=== PATIENT | male | born 1970 | race Two or more races ===

== ENCOUNTER 2016-08-07 14:47 | Inpatient (IN) | payer OTHER ==
[2016-08-07 16:08] VITALS: BMI 21.9
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
[2016-08-07] MEDS ORDERED: P-EPHED 60MG/TRIPROLIDI 2.5MG TABLET PO PRN (19:05)
[2016-08-07] MEDS ORDERED: MAG HYDROX/AL HYDROX/SIMETH 30 ML UNIT-DOSE CUP PO PRN (19:05)
[2016-08-07] MEDS ORDERED: MAGNESIUM CITRATE 300 ML BOTTLE PO PRN (19:05)
[2016-08-07] MEDS ORDERED: MAGNESIUM HYDROX 2400MG/30ML ORAL SUSPENSION 30 ML CUP PO PRN (19:05)
[2016-08-07] MEDS ORDERED: NICOTINE POLACRILEX 2 MG GUM BC PRN (19:05)
[2016-08-07] MEDS ORDERED: IBUPROFEN 400 MG TABLET (FP) PO PRN (19:05)
[2016-08-07] MEDS ORDERED: MENTHOL/PHENOL 1 EACH UD MM PRN (19:05)
[2016-08-07] MEDS ORDERED: guaiFENesin/D-METHORPHAN HB 10 ML UNIT-DOSE CUPS PO PRN (19:05)
[2016-08-07] MEDS ORDERED: ACETAMINOPHEN 325 MG TABLET (FP) PO PRN (19:05)
[2016-08-07] MEDS ORDERED: LOPERAMIDE HCL 2 MG CAPSULE PO PRN (19:05)
[2016-08-07] MEDS ORDERED: METHADONE HCL 10 MG TABLET (FOR DETOX USE ONLY) PO ONE ×2 (20:15→23:00)
[2016-08-07] MEDS: cloNIDine HCL 0.1 MG TABLET PO PRN (21:29)
[2016-08-07] MEDS: diazePAM 5 MG TABLET PO PRN (21:29)
[2016-08-07] MEDS: THIAMINE HCL 100 MG TABLET (FP) PO SCH (21:29)
[2016-08-07 22:58] LABS: URINE APPEARANCE CLEAR; URINE BILIRUBIN NEGATIVE (NEGATIVE); URINE BLOOD NEGATIVE (NEGATIVE); URINE COLOR YELLOW; URINE GLUCOSE (UA) NEGATIVE (NEGATIVE); URINE KETONE NEGATIVE (NEGATIVE); URINE LEUK ESTERASE NEGATIVE (NEGATIVE); URINE NITRITE NEGATIVE (NEGATIVE); URINE UROBILINOGEN 2.0 E.U/dl E.U./dl (0.2-1.0)
[2016-08-07 23:02] LABS: URINE PROTEIN 2+ (NEGATIVE)
[2016-08-08] MEDS: cloNIDine HCL 0.1 MG TABLET PO PRN (06:36)
[2016-08-08] MEDS: diazePAM 5 MG TABLET PO PRN ×3 (07:00→22:12)
[2016-08-08] MEDS ORDERED: METHADONE HCL 10 MG TABLET (FOR DETOX USE ONLY) PO ONE (10:00)
[2016-08-08] MEDS: PRENATAL VITAMINS W/ FOLIC ACID TABLET (FP) PO SCH (10:17)
[2016-08-08] MEDS: NICOTINE 14 MG/24 HOURS TOPICAL PATCH TD SCH (10:17)
[2016-08-08 10:31] LABS: MCH 29.1 pg (25.7-33.7); MCHC 33.2 g/dl (32.0-35.9); MEAN CELL VOLUME 87.8 fl (80-96); MEAN PLT VOLUME 8.6 fl (7.5-11.1); PLATELET COUNT 238 K/MM3 (134-434); RDW 13.6 % (11.9-15.9); WHITE BLOOD COUNT 6.3 K/mm3 (4.0-10.0)
[2016-08-08 10:35] LABS: ALBUMIN 3.3 g/dl (3.4-5.0); ALK PHOS 79 U/L (45-117); ANION GAP 10 (8-16); BILIRUBIN,TOTAL 0.3 mg/dL (0.2-1.0); CALCIUM 8.8 mg/dL (8.5-10.1); CO2 25 mmol/L (21-32); CREATININE 0.8 mg/dL (0.7-1.3); GLUCOSE,RANDOM 90 mg/dL (74-106); SGOT/AST 14 U/L (15-37); SGPT/ALT 28 U/L (12-78); TOT PROT 6.9 g/dl (6.4-8.2)
--- NOTE | 2016-08-08 13:35 | EKG ---
Test Reason : Blood Pressure : / mmHG Vent. Rate : 064 BPM Atrial Rate : 064 BPM P-R Int : 180 ms QRS Dur : 096 ms QT Int : 406 ms P-R-T Axes : 058 047 038 degrees QTc Int : 418 ms NORMAL SINUS RHYTHM VOLTAGE CRITERIA FOR LEFT VENTRICULAR HYPERTROPHY CANNOT RULE OUT SEPTAL INFARCT , AGE UNDETERMINED ABNORMAL ECG NO PREVIOUS ECGS AVAILABLE Confirmed by BERONICA ROACH MD ([id number]) on 08/08/2016 1:34:55 PM Referred By: Confirmed By:BERONICA ROACH MD
--- NOTE | 2016-08-08 17:45 | PN ---
[facility] COWS - Scale Resting Pulse: 1= [place] 81-100 Sweatin=Flushed/Facial Moisture Restless Observation: 1= Difficult to Sit Still Pupil Size: 0= Normal to Room Light Bone or Joint Aches: 2= Severe Diffuse Aches Runny Nose/ Eye Tearin= Runny Nose/Eyes GI Upset > 30mins: 2= Nausea/Diarrhea Tremor Observation of Outstretched Hands: 2= Slight Tremor Visible Yawning Observation: 1= 1-2x During Session Anxiety or Irritability: 2=Irritable/Anxious Goose Flesh Skin: 0=Smooth Skin COWS Score: 15 BHS Progress Note (SOAP) Subjective: ANXIETY,SWEATING,INTERRUPTED SLEEP,BACK/BONE PAIN,RESTLESS Objective: 08/08/16 17:44 Vital Signs - 8 hr 08/08/16 13:18 Temperature 97.2 F L Pulse Rate 81 Respiratory 18 Rate Blood Pressure 126/72 Laboratory Tests 08/07/16 08/08/16 08/08/16 22:05 07:00 07:00 WBC 6.3 RBC 4.88 Hgb 14.2 D Hct 42.8 MCV 87.8 MCHC 33.2 RDW 13.6 Plt Count 238 MPV 8.6 Sodium 137 Potassium 4.0 Chloride 102 Carbon Dioxide 25 Anion Gap 10 BUN 13 D Creatinine 0.8 Creat Clearance w eGFR > 60 Random Glucose 90 Calcium 8.8 Total Bilirubin 0.3 D AST 14 L ALT 28 D Alkaline Phosphatase 79 D Total Protein 6.9 Albumin 3.3 L Urine Color Yellow Urine Appearance Clear Urine pH 6.0 Ur Specific [place] 1.025 Urine Protein 2+ H Urine Glucose (UA) Negative Urine Ketones Negative Urine Blood Negative Urine Nitrite Negative Urine Bilirubin Negative Urine Urobilinogen 2.0 e.u/dl Ur Leukocyte Esterase Negative RPR Titer 08/08/16 07:00 WBC RBC Hgb Hct MCV MCHC RDW Plt Count MPV Sodium Potassium Chloride Carbon Dioxide Anion Gap BUN Creatinine Creat Clearance w eGFR Random Glucose Calcium Total Bilirubin AST ALT Alkaline Phosphatase Total Protein Albumin Urine Color Urine Appearance Urine pH Ur Specific [place] Urine Protein Urine Glucose (UA) Urine Ketones Urine Blood Urine Nitrite Urine Bilirubin Urine Urobilinogen Ur Leukocyte Esterase RPR Titer Nonreactive LABS NOTED Assessment: 08/08/16 17:44 WITHDRAWAL SX. Plan: CONTINUE DETOX
[2016-08-08] MEDS: THIAMINE HCL 100 MG TABLET (FP) PO SCH (22:11)
[2016-08-08] MEDS: diphenhydrAMINE HCL 50 MG CAPSULE PO PRN (22:12)
[2016-08-09] MEDS: cloNIDine HCL 0.1 MG TABLET PO PRN ×2 (05:50→22:50)
[2016-08-09] MEDS: diazePAM 5 MG TABLET PO PRN ×2 (05:50→22:50)
[2016-08-09] MEDS ORDERED: METHADONE HCL 5 MG TABLET (FOR DETOX USE ONLY) PO ONE (10:00)
[2016-08-09] MEDS: PRENATAL VITAMINS W/ FOLIC ACID TABLET (FP) PO SCH (10:22)
[2016-08-09] MEDS: NICOTINE 14 MG/24 HOURS TOPICAL PATCH TD SCH (10:22)
--- NOTE | 2016-08-09 12:49 | PN ---
[facility] COWS - Scale Resting Pulse: 2= [place] 101-120 Sweatin=Flushed/Facial Moisture Restless Observation: 1= Difficult to Sit Still Pupil Size: 0= Normal to Room Light Bone or Joint Aches: 2= Severe Diffuse Aches Runny Nose/ Eye Tearin= Runny Nose/Eyes GI Upset > 30mins: 2= Nausea/Diarrhea Tremor Observation of Outstretched Hands: 2= Slight Tremor Visible Yawning Observation: 1= 1-2x During Session Anxiety or Irritability: 2=Irritable/Anxious Goose Flesh Skin: 0=Smooth Skin COWS Score: 16 BHS Progress Note (SOAP) Subjective: ANXIETY,SWEATING,INTERRUPTED SLEEP,RESTLESS,NAUSEA,BODY ACHES. Objective: 08/09/16 12:48 Vital Signs - 8 hr 08/09/16 08/09/16 08/09/16 06:59 07:20 10:08 Temperature 96.6 F L 97.0 F L Pulse Rate 103 H 112 H 108 H Respiratory 20 16 Rate Blood Pressure 144/101 106/78 139/90 Laboratory Tests 08/07/16 08/08/16 08/08/16 22:05 07:00 07:00 WBC 6.3 RBC 4.88 Hgb 14.2 D Hct 42.8 MCV 87.8 MCHC 33.2 RDW 13.6 Plt Count 238 MPV 8.6 Sodium 137 Potassium 4.0 Chloride 102 Carbon Dioxide 25 Anion Gap 10 BUN 13 D Creatinine 0.8 Creat Clearance w eGFR > 60 Random Glucose 90 Calcium 8.8 Total Bilirubin 0.3 D AST 14 L ALT 28 D Alkaline Phosphatase 79 D Total Protein 6.9 Albumin 3.3 L Urine Color Yellow Urine Appearance Clear Urine pH 6.0 Ur Specific [place] 1.025 Urine Protein 2+ H Urine Glucose (UA) Negative Urine Ketones Negative Urine Blood Negative Urine Nitrite Negative Urine Bilirubin Negative Urine Urobilinogen 2.0 e.u/dl Ur Leukocyte Esterase Negative RPR Titer 08/08/16 07:00 WBC RBC Hgb Hct MCV MCHC RDW Plt Count MPV Sodium Potassium Chloride Carbon Dioxide Anion Gap BUN Creatinine Creat Clearance w eGFR Random Glucose Calcium Total Bilirubin AST ALT Alkaline Phosphatase Total Protein Albumin Urine Color Urine Appearance Urine pH Ur Specific [place] Urine Protein Urine Glucose (UA) Urine Ketones Urine Blood Urine Nitrite Urine Bilirubin Urine Urobilinogen Ur Leukocyte Esterase RPR Titer Nonreactive LABS NOTED Assessment: 08/09/16 12:48 WITHDRAWAL SX. Plan: CONTINUE DETOX
[2016-08-09] MEDS: THIAMINE HCL 100 MG TABLET (FP) PO SCH (22:50)
[2016-08-09] MEDS: diphenhydrAMINE HCL 50 MG CAPSULE PO PRN (22:50)
[2016-08-10] MEDS ORDERED: METHADONE HCL 5 MG TABLET (FOR DETOX USE ONLY) PO ONE (10:00)
[2016-08-10] MEDS: PRENATAL VITAMINS W/ FOLIC ACID TABLET (FP) PO SCH (10:06)
[2016-08-10] MEDS: NICOTINE 14 MG/24 HOURS TOPICAL PATCH TD SCH (10:06)
--- NOTE | 2016-08-10 10:23 | PN ---
BHS Progress Note (SOAP) Subjective: Sweating,interrupted sleep,restless Objective: 08/10/16 10:22 Vital Signs - 8 hr 08/10/16 08/10/16 08/10/16 03:30 06:23 10:06 Temperature 96.7 F L 95.8 F L Pulse Rate 93 H 95 H Respiratory 18 18 18 Rate Blood Pressure 141/89 125/84 Laboratory Tests 08/07/16 08/08/16 08/08/16 22:05 07:00 07:00 WBC 6.3 RBC 4.88 Hgb 14.2 D Hct 42.8 MCV 87.8 MCHC 33.2 RDW 13.6 Plt Count 238 MPV 8.6 Sodium 137 Potassium 4.0 Chloride 102 Carbon Dioxide 25 Anion Gap 10 BUN 13 D Creatinine 0.8 Creat Clearance w eGFR > 60 Random Glucose 90 Calcium 8.8 Total Bilirubin 0.3 D AST 14 L ALT 28 D Alkaline Phosphatase 79 D Total Protein 6.9 Albumin 3.3 L Urine Color Yellow Urine Appearance Clear Urine pH 6.0 Ur Specific [place] 1.025 Urine Protein 2+ H Urine Glucose (UA) Negative Urine Ketones Negative Urine Blood Negative Urine Nitrite Negative Urine Bilirubin Negative Urine Urobilinogen 2.0 e.u/dl Ur Leukocyte Esterase Negative RPR Titer 08/08/16 07:00 WBC RBC Hgb Hct MCV MCHC RDW Plt Count MPV Sodium Potassium Chloride Carbon Dioxide Anion Gap BUN Creatinine Creat Clearance w eGFR Random Glucose Calcium Total Bilirubin AST ALT Alkaline Phosphatase Total Protein Albumin Urine Color Urine Appearance Urine pH Ur Specific [place] Urine Protein Urine Glucose (UA) Urine Ketones Urine Blood Urine Nitrite Urine Bilirubin Urine Urobilinogen Ur Leukocyte Esterase RPR Titer Nonreactive labs noted Assessment: 08/10/16 10:22 withdrawal sx. Plan: continue detox
[2016-08-10] MEDS: THIAMINE HCL 100 MG TABLET (FP) PO SCH (22:15)
[2016-08-10] MEDS: diphenhydrAMINE HCL 50 MG CAPSULE PO PRN (22:15)
[2016-08-10] MEDS: cloNIDine HCL 0.1 MG TABLET PO PRN (22:16)
--- NOTE | 2016-08-11 09:35 | DS ---
[facility] Detox Discharge Summary Admission Date: 08/07/16 Discharge Date: 08/11/16 - History Present History: Opioid Dependence Pertinent Past History: None - Physical Exam Results Vital Signs: Laboratory Last Values WBC 6.3 K/mm3 (4.0-10.0) 08/08/16 07:00 RBC 4.88 M/mm3 (4.00-5.60) 08/08/16 07:00 Hgb 14.2 GM/dL (11.7-16.9) D 08/08/16 07:00 Hct 42.8 % (35.4-49) 08/08/16 07:00 MCV 87.8 fl (80-96) 08/08/16 07:00 MCHC 33.2 g/dl (32.0-35.9) 08/08/16 07:00 RDW 13.6 % (11.9-15.9) 08/08/16 07:00 Plt Count 238 K/MM3 (134-434) 08/08/16 07:00 MPV 8.6 fl (7.5-11.1) 08/08/16 07:00 Sodium 137 mmol/L (136-145) 08/08/16 07:00 Potassium 4.0 mmol/L (3.5-5.1) 08/08/16 07:00 Chloride 102 mmol/L (98-107) 08/08/16 07:00 Carbon Dioxide 25 mmol/L (21-32) 08/08/16 07:00 Anion Gap 10 (8-16) 08/08/16 07:00 BUN 13 mg/dL (7-18) D 08/08/16 07:00 Creatinine 0.8 mg/dL (0.7-1.3) 08/08/16 07:00 Creat Clearance w eGFR > 60 (>60) 08/08/16 07:00 Random Glucose 90 mg/dL (74-106) 08/08/16 07:00 Calcium 8.8 mg/dL (8.5-10.1) 08/08/16 07:00 Total Bilirubin 0.3 mg/dL (0.2-1.0) D 08/08/16 07:00 AST 14 U/L (15-37) L 08/08/16 07:00 ALT 28 U/L (12-78) D 08/08/16 07:00 Alkaline Phosphatase 79 U/L (45-117) D 08/08/16 07:00 Total Protein 6.9 g/dl (6.4-8.2) 08/08/16 07:00 Albumin 3.3 g/dl (3.4-5.0) L 08/08/16 07:00 Urine Color Yellow 08/07/16 22:05 Urine Appearance Clear 08/07/16 22:05 Urine pH 6.0 (5.0-8.0) 08/07/16 22:05 Ur Specific [place] 1.025 (1.001-1.035) 08/07/16 22:05 Urine Protein 2+ (NEGATIVE) H 08/07/16 22:05 Urine Glucose (UA) Negative (NEGATIVE) 08/07/16 22:05 Urine Ketones Negative (NEGATIVE) 08/07/16 22:05 Urine Blood Negative (NEGATIVE) 08/07/16 22:05 Urine Nitrite Negative (NEGATIVE) 08/07/16 22:05 Urine Bilirubin Negative (NEGATIVE) 08/07/16 22:05 Urine Urobilinogen 2.0 e.u/dl E.U./dl (0.2-1.0) 08/07/16 22:05 Ur Leukocyte Esterase Negative (NEGATIVE) 08/07/16 22:05 RPR Titer Nonreactive (NONREACTIVE) 08/08/16 07:00 Vital Signs Temperature 96.1 F L 08/11/16 06:56 Pulse Rate 106 H 08/11/16 06:56 Respiratory Rate 18 08/11/16 06:56 Blood Pressure 118/85 08/11/16 06:56 O2 Sat by Pulse Oximetry (%) labs noted Pertinent Admission Physical Exam Findings: Withdrawls - Treatment Hospital Course: Detox Protocol Followed, Detoxed Safely, Responded well, Discharged Condition Good - Medication Discharge Medications: Ambulatory Orders NK [No Known Home Medication] 03/15/14 - Diagnosis (1) Nicotine dependence Current Visit: Yes Status: Acute Qualifiers: Nicotine product type: cigarettes Substance use status: in withdrawal Qualified Code(s): F17.213 - Nicotine dependence, cigarettes, with withdrawal (2) Marijuana dependence Current Visit: No Status: Chronic - AMA Did Patient Leave Against Medical Advice: No
[2016-08-11] MEDS: PRENATAL VITAMINS W/ FOLIC ACID TABLET (FP) PO SCH (09:42)
[2016-08-11] MEDS: NICOTINE 14 MG/24 HOURS TOPICAL PATCH TD SCH (09:43)
[2016-08-11 09:54] VITALS: BP 140/83; PULSE 95; TEMP 96.5
[2016-08-11] MEDS ORDERED: METHADONE HCL 10 MG TABLET (FOR DETOX USE ONLY) PO ONE (10:00)
[2016-08-12] MEDS ORDERED: METHADONE HCL 5 MG TABLET (FOR DETOX USE ONLY) PO ONE (06:00)
== END 2016-08-11 09:52 | disposition home or self-care (01) | DRG 773 ==
LOC: YASAS 14:47 → Y3N 20:03
PROVIDERS: ADMIT Internal Medicine; ATTEND Internal Medicine
PROC: HZ2ZZZZ Detoxification Services for Substance Abuse Treatment (ICD-10-PCS; principal; 2016-08-11)
DX: F11.23 Opioid dependence with withdrawal (principal); F12.20 Cannabis dependence, uncomplicated; F17.213 Nicotine dependence, cigarettes, with withdrawal; R63.4 Abnormal weight loss; Z68.22 Body mass index [BMI] 22.0-22.9, adult
CPT/HCPCS: 36415; 80053; 81003; 81015; 85027; 86593; 93005; 93010